=== PATIENT | female | born 1935 | race Caucasian/White ===

== ENCOUNTER 2023-05-06 10:01 | Emergency (ER) | payer MEDICARE, MEDICAID ==
[~2023-05-06] VITALS: Ht 154.9 cm; Wt 47.6 kg
[2023-05-06] VITALS (9 sets, daily range): BP systolic 129–174; BP diastolic 72–103
[2023-05-06 10:38] LABS: BASO% 0.5 % (0-3); EOS% 2.4 % (0-8); HEMATOCRIT 33.5 % (37.0-47.0); HEMOGLOBIN 11.2 g/dl (12.0-16.0); IMMATURE GRANULOCYTES 0.2 % (0.0-5.0); LYMPH% 16.7 % (15-41); MEAN CELL VOLUME 95.2 fL CALC (80.0-100.0); MEAN CORPUSCULAR HGB 31.8 pG CALC (26.0-32.0); MEAN CORPUSCULAR HGB CONC 33.4 g/dL CAL (32.0-36.0); MONO% 9.9 % (2-13); NEUT# 6.71 thou/uL (2.00-7.15); NEUT% 70.3 % (42-76); RED BLOOD COUNT 3.52 mill/uL (4.20-5.60); RED CELL DISTRI WIDTH 12.7 % (11.5-15.5)
[2023-05-06 10:51] LABS: ALKALINE PHOSPHATASE 71 u/l (38-126); ANION GAP 10 (6-22 (CALC)); BUN 9 mg/dL (8-23); BUN/CREATININE RATIO 11 (12-20 (CALC)); CARBON DIOXIDE 26 mmol/l (22-30); CHLORIDE 101 mmol/l (95-108); CREATININE 0.8 mg/dL (0.5-1.0); GFR FOR AFR.AMER. > 60 ML/MIN (>=60 (CALC)); GFR OTHER RACES > 60 ML/MIN (>=60 (CALC)); POTASSIUM 3.9 mmol/l (3.5-5.1); SGOT/AST 30 u/l (9-36); SODIUM 133 mmol/l (137-146); TOTAL PROTEIN 6.4 g/dL (6.3-8.2)
[2023-05-06 10:52] LABS: BILIRUBIN, TOTAL 0.6 mg/dL (0.02-1.3)
[2023-05-06 12:29] LABS: URINE BILIRUBIN - DIPSTICK Negative (NEGATIVE); URINE BLOOD DIPSTICK Negative (NEGATIVE); URINE GLUCOSE - DIPSTICK Negative (NEGATIVE); URINE KETONE Negative (NEGATIVE); URINE LEUK ESTERASE Negative (NEGATIVE); URINE NITRITE - DIPSTICK Negative (Negative); URINE PROTEIN - DIPSTICK Negative (NEG-TRACE); URINE SPECIFIC GRAVITY 1.015; URINE UROBILINOGEN - DIPSTICK 0.2 E.U./dL (0.2)
[2023-05-06 12:30] LABS: URINE COLOR Yellow
== END 2023-05-06 14:00 | disposition home or self-care (01) ==
LOC: ED 10:01
PROVIDERS: Family Medicine
DX: R55 Syncope and collapse (principal); S51.012A Laceration without foreign body of left elbow, initial encounter; S81.012A Laceration without foreign body, left knee, initial encounter; I10 Essential (primary) hypertension; W18.39XA Other fall on same level, initial encounter; Y92.531 Health care provider office as the place of occurrence of the external cause; Z20.822 Contact with and (suspected) exposure to COVID-19

== ENCOUNTER 2024-03-10 11:44 | Inpatient (IN) | payer MEDICARE, MEDICAID ==
[~2024-03-10] VITALS: Ht 154.9 cm; Wt 48.1 kg
--- NOTE | 2024-03-10 11:44 | NUR ---
PATIENT TO ER ROOM 14 VIA EMS.
[2024-03-10] MEDS ORDERED: hydrALAZINE HCL 20 MG/ML VIAL(1 ML) IV ONE (11:50)
[2024-03-10 12:18] LABS: BASO% 0.3 % (0-3); EOS% 2.3 % (0-8); HEMATOCRIT 35.1 % (37.0-47.0); HEMOGLOBIN 12.5 g/dl (12.0-16.0); IMMATURE GRANULOCYTES 0.4 % (0.0-5.0); LYMPH% 18.7 % (15-41); MEAN CORPUSCULAR HGB 31.1 pG CALC (26.0-32.0); MEAN CORPUSCULAR HGB CONC 35.6 g/dL CAL (32.0-36.0); MONO% 8.2 % (2-13); NEUT# 4.8 thou/uL (2.00-7.15); NEUT% 70.1 % (42-76); RED BLOOD COUNT 4.02 mill/uL (4.20-5.60); RED CELL DISTRI WIDTH 11.4 % (11.5-15.5)
[2024-03-10 12:43] LABS: MEAN CELL VOLUME 87.3 fL CALC (80.0-100.0)
--- NOTE | 2024-03-10 13:00 | NUR ---
PATIENT LYING IN BED WITH NO ACUTE DISTRESS NOTED AT THIS TIME. VSS. BED LOCKED, IN LOW POSITION. CALL LIGHT WITHIN REACH.
[2024-03-10 13:02] LABS: ALBUMIN 4.5 g/dL (3.2-5.0); ALKALINE PHOSPHATASE 67 u/l (38-126); BUN 7 mg/dL (8-23); BUN/CREATININE RATIO 9 (12-20 (CALC)); CARBON DIOXIDE 27 mmol/l (22-30); CREATININE 0.7 mg/dL (0.5-1.0); ESTIMATED GFR 83 ML/MIN (>=90 (CALC)); SGOT/AST 31 u/l (9-36); TOTAL PROTEIN 7.3 g/dL (6.3-8.2)
[2024-03-10 13:03] LABS: ANION GAP 14 (6-22 (CALC)); BILIRUBIN, TOTAL 1.2 mg/dL (0.02-1.3); CHLORIDE 75 mmol/l (95-108)
[2024-03-10 13:06] LABS: SODIUM 113 mmol/l (137-146)
[2024-03-10] MEDS ORDERED: SODIUM CHLORIDE 0.9% 1,000 ML IV ONE (13:10)
[2024-03-10] MEDS ORDERED: POTASSIUM CHLORIDE 20 MEQ/TAB PO ONE (13:20)
--- NOTE | 2024-03-10 14:00 | NUR ---
NO ACUTE DISTRESS NOTED. VSS. BED LOCKED, IN LOW POSITION, CALL LIGHT WITHIN REACH.
[2024-03-10 14:57] LABS: CREATININE 0.8 mg/dL (0.5-1.0); POTASSIUM 3.1 mmol/l (3.5-5.1)
--- NOTE | 2024-03-10 15:46 | NUR ---
PATIENT RECEIVING CENTRAL LINE.
[2024-03-10] MEDS ORDERED: SODIUM CHLORIDE 3% 100 ML IV SCH (16:30)
--- NOTE | 2024-03-10 17:15 | NUR ---
PATIENT TAKEN TO ICU ROOM 3.
--- NOTE | 2024-03-10 17:30 | NUR ---
PT ARRIVED TO ICU BY WHEELCHAIR WITH ED NURSE. PT AMBULATED TO BED INDEPENDENTLY. REPOSITIONED IN BED. PT IS A/O. LUNGS CLEAR; ON RA; NO COUGH OR SOB NOTED. HEART SOUNDS S1S2; NSR ON TELEMETRY. BS ACTIVE. LAST BM TODAY. PULSES STRONG UPPER, WEAK LOWER EXTREMETIES. NO EDEMA. SKIN W/D/I. AFEBRILE. PT'S SON AT BEDSIDE. PT EDUCATED ON FALL PRECAUTIONS AND GIVEN CALL LIGHT. PT DECLINED DINNER. VSS.
--- NOTE | 2024-03-10 17:32 | NUR ---
PATIENT TAKEN TO ROOM 280 WITH TELE.
[2024-03-10] MEDS ORDERED: ATORVASTATIN CA40 MG PO (17:52)
[2024-03-10] MEDS ORDERED: FERROUS SULFAT325 MG PO (17:53)
[2024-03-10] MEDS ORDERED: FUROSEMIDE20 MG PO (17:53)
[2024-03-10] MEDS ORDERED: OMEPRAZOLE DR40 MG PO (17:55)
[2024-03-10] MEDS ORDERED: hydrALAZINE HCL 20 MG/ML VIAL(1 ML) IV PRN (18:25)
--- NOTE | 2024-03-10 18:27 | NUR ---
DR. ROACH AT BEDSIDE TO SPEAK WITH PT.
[2024-03-10] MEDS ORDERED: LOSARTAN POTASS50 MG PO (19:12)
[2024-03-10] MEDS ORDERED: LEVOCETIRIZINE D5 MG PO (19:13)
[2024-03-10] MEDS ORDERED: CARVEDILOL25 MG PO (19:14)
[2024-03-10 19:55] LABS: CREATININE 0.7 mg/dL (0.5-1.0)
[2024-03-10 19:56] LABS: POTASSIUM 3.8 mmol/l (3.5-5.1)
--- NOTE | 2024-03-10 20:00 | NUR ---
ASSESSMENT COMPLETE. PT IS A + O TO PPT. PT COMPLAINS OF A HEADACHE. PT IS HOH. TAO @ BEDSIDE. BP 181/88. HR 72. CALL LIGHT IN REACH
[2024-03-10] MEDS ORDERED: SODIUM CHLORIDE 1 GM/TAB TAB PO SCH (20:45)
[2024-03-10] MEDS ORDERED: SODIUM CHLORIDE 0.9% 1,000 ML IV SCH (20:45)
[2024-03-10] MEDS ORDERED: FUROSEMIDE 20 MG/TAB PO SCH (20:50)
[2024-03-10] MEDS ORDERED: LOSARTAN Potassium 50 MG/TAB PO SCH (21:00)
[2024-03-10] MEDS ORDERED: CARVEDILOL 25 MG/TAB PO SCH (21:00)
[2024-03-10] MEDS ORDERED: UREA 15 GM PO SCH (21:00)
--- NOTE | 2024-03-10 22:00 | NUR ---
NEPHROLOGY CONSULTED PER DR WIN REQUEST. [facility], 114. PT COMPLAINS OF SEVERE HEADACHE. AN NIH ASSESSMENT WAS DONE W/ ANOTHER NURSE WITNESS TO RULE OUT, NO DEFICITS NOTED.
[2024-03-10] MEDS ORDERED: ACETAMINOPHEN 325 MG/TAB PO PRN (22:15)
--- NOTE | 2024-03-10 22:30 | NUR ---
RBABEL MURILLO - Q6H FOR SODIUM LAB DRAW INSTEAD OF Q2H
[2024-03-11] VITALS (10 sets, daily range): BP systolic 109–163; BP diastolic 59–87
--- NOTE | 2024-03-11 | NUR ---
PT RESTING COMFORTABLY, NO COMPLAINTS. V/S STABLE CALL LIGHT IN REACH
[2024-03-11 00:43] LABS: CREATININE 0.7 mg/dL (0.5-1.0); POTASSIUM 3.5 mmol/l (3.5-5.1)
--- NOTE | 2024-03-11 04:00 | NUR ---
PT ASSISTED TO BR. NO COMPLAINTS. LINENS CHANGED. BP ELEVATED. CALL LIGHT IN REACH
[2024-03-11 05:58] LABS: BASO% 0.4 % (0-3); EOS% 1.7 % (0-8); HEMATOCRIT 32.7 % (37.0-47.0); HEMOGLOBIN 11.6 g/dl (12.0-16.0); IMMATURE GRANULOCYTES 0.2 % (0.0-5.0); LYMPH% 14.1 % (15-41); MEAN CELL VOLUME 87.9 fL CALC (80.0-100.0); MEAN CORPUSCULAR HGB 31.2 pG CALC (26.0-32.0); MEAN CORPUSCULAR HGB CONC 35.5 g/dL CAL (32.0-36.0); MONO% 10.2 % (2-13); NEUT% 73.4 % (42-76); RED BLOOD COUNT 3.72 mill/uL (4.20-5.60); RED CELL DISTRI WIDTH 11.6 % (11.5-15.5)
[2024-03-11 06:17] LABS: URINE BILIRUBIN - DIPSTICK Negative (NEGATIVE); URINE BLOOD DIPSTICK Trace-lysed (NEGATIVE); URINE CLARITY Clear; URINE GLUCOSE - DIPSTICK Negative (NEGATIVE); URINE KETONE Trace mg/dL (NEGATIVE); URINE LEUK ESTERASE Negative (Negative); URINE NITRITE - DIPSTICK Negative (Negative); URINE PH 7.5 (4.5-8.0); URINE PROTEIN - DIPSTICK Negative (NEG-TRACE); URINE UROBILINOGEN - DIPSTICK 0.2 E.U./dL (0.2)
[2024-03-11 06:22] LABS: URINE COLOR Yellow
[2024-03-11 06:37] LABS: ALBUMIN 3.9 g/dL (3.2-5.0); BILIRUBIN, TOTAL 1.2 mg/dL (0.02-1.3); CREATININE 0.8 mg/dL (0.5-1.0); MAGNESIUM 1.6 mg/dL (1.6-2.3); TOTAL PROTEIN 6.3 g/dL (6.3-8.2)
--- NOTE | 2024-03-11 07:55 | NUR ---
REPORT RECEIVED FROM NIGHT NURSE. PT IS A/O. LYING IN BED. LUNGS CLEAR; PT IS ON RA; NO COUGH OR SOB NOTED. HEART SOUNDS S1S2; PT IS NSR ON TELEMETRY. BS ACTIVE; PT DENIES ANY ABDOMINAL PAIN OR TENDERNESS; DENIES ANY NAUSEA. PULSES STRONG UPPER, WEAK LOWER EXTREMETIES. SKIN W/D/I. AFEBRILE. PT DENIES ANY NEEDS AT THIS TIME. GIVEN BREAKFAST TRAY BUT NOT READY TO SIT UP TO EAT YET. CALL LIGHT IN REACH. VSS.
[2024-03-11] MEDS ORDERED: MAGNESIUM SULFATE HEPTAHYDRATE 50 ML IV SCH (09:00)
[2024-03-11] MEDS ORDERED: SODIUM CHLORIDE 1 GM/TAB TAB PO SCH (09:00)
[2024-03-11] MEDS ORDERED: POTASSIUM CHLORIDE 20 MEQ/TAB PO SCH ×2 (09:00→16:30)
[2024-03-11] MEDS ORDERED: FUROSEMIDE 20 MG/TAB PO SCH (09:00)
--- NOTE | 2024-03-11 09:55 | NUR ---
NO CHANGES TO PT STATUS. PT HAD INCONTINENT VOID. PT ASSISTED TO BEDSIDE COMMODE TO VOID. LINENS CHANGES. OFFERED FOR PT TO GO TO CHAIR BUT PT DECLINED AND WAS ASSISTED BACK TO BED. CALL LIGHT IN REACH. VSS.
[2024-03-11 10:43] LABS: CREATININE 0.7 mg/dL (0.5-1.0)
--- NOTE | 2024-03-11 11:55 | NUR ---
NO CHANGES TO PT STATUS. PT LYING IN BED. LUNCH TRAY AT BEDSIDE. CALL LIGHT IN REACH. VSS.
--- NOTE | 2024-03-11 12:21 | NUR ---
REPORT GIVEN TO NURSE LAU.
--- NOTE | 2024-03-11 12:30 | NUR ---
Report received from off going nurse. Patient sitting in bed watching television.
[2024-03-11 14:53] LABS: CREATININE 0.7 mg/dL (0.5-1.0); POTASSIUM 3.3 mmol/l (3.5-5.1)
--- NOTE | 2024-03-11 16:00 | NUR ---
Patient sitting in bed visiting with family.
[2024-03-11] MEDS ORDERED: SODIUM CHLORIDE 0.9% 1,000 ML IV ONE (17:00)
--- NOTE | 2024-03-11 18:07 | NUR ---
Dr. Mendieta called to notify of patient's temperature at 1600 and 1800. Orders received.
[2024-03-11 18:32] LABS: CREATININE 0.8 mg/dL (0.5-1.0); POTASSIUM 3.3 mmol/l (3.5-5.1)
--- NOTE | 2024-03-11 19:30 | NUR ---
RECEIVED PATIENT IN NURSE HANDOFF. PATIENT IS STABLE AT THIS TIME, STILL RECEIVING NA+ REPLACEMENT WITH CURRENT NA SERUM AT 120. R-FEMORAL TRIPLE LUMEN APPEARS WITHOUT COMPLICATION OR DISLODGEMENT. EDUCATED ON FALL PRECAUTIONS. BED RAILS PADDED FOR SAFETY.
[2024-03-11 22:43] LABS: POTASSIUM 3.7 mmol/l (3.5-5.1)
[2024-03-11 22:48] LABS: CREATININE 0.9 mg/dL (0.5-1.0)
--- NOTE | 2024-03-11 23:30 | NUR ---
PATIENT ASSISTED TO REMOVE DENTURES, PUREWICK PLACED FOR SLEEP. DENIES MOODY, PAIN OR SOB AT THIS TIME, NO SIGNS OF DISTRESS NOTED. VSS. RESTING WELL WITH CALL LIGHT IN REACH
[2024-03-12] VITALS (29 sets, daily range): BP systolic 103–192; BP diastolic 46–117
--- NOTE | 2024-03-12 01:00 | NUR ---
PT ASSISTED WITH RESTROOM, DENIES PAIN OR SOB. REPOSITIONED FOR COMFORT. RESTING CALMLY WITH CALL LIGHT IN REACH
[2024-03-12 02:36] LABS: HEMATOCRIT 32.3 % (37.0-47.0); HEMOGLOBIN 11.6 g/dl (12.0-16.0); MEAN CORPUSCULAR HGB CONC 35.9 g/dL CAL (32.0-36.0); RED BLOOD COUNT 3.63 mill/uL (4.20-5.60); RED CELL DISTRI WIDTH 12.1 % (11.5-15.5)
[2024-03-12 02:38] LABS: ALBUMIN 3.9 g/dL (3.2-5.0); BILIRUBIN, TOTAL 1.1 mg/dL (0.02-1.3); CREATININE 0.9 mg/dL (0.5-1.0); POTASSIUM 3.3 mmol/l (3.5-5.1); TOTAL PROTEIN 6.4 g/dL (6.3-8.2)
--- NOTE | 2024-03-12 04:30 | NUR ---
LABS DRAWN PER MD ORDER. DENIES PAIN OR COMPLAINTS, MEDICATED PER MD ORDER FOR HBP SB P > 190. RECEIVED HYDRALAZINE, REASSESSMENT SHOWED POSITIVE EFFECT.
--- NOTE | 2024-03-12 05:19 | NUR ---
PT REMAINS STABLE WITH NO COMPLAINTS, RESTING QUIETLY WITH CALL LIGHT IN REACH
[2024-03-12 06:17] LABS: CREATININE 0.9 mg/dL (0.5-1.0); POTASSIUM 3.4 mmol/l (3.5-5.1)
--- NOTE | 2024-03-12 07:41 | NUR ---
REPORT RECEIVED FROM NIGHT NURSE. PATIENT AXO X3. S1S2 NOTED, NORMAL SINUS ON TELE. LUNG SOUNDS CLEAR, NO COUGH OR SOB NOTED, ON ROOM AIR. ABDOMEN SOFT, NON DISTENDED, NON TENDER, WITH ACTIVE BOWEL SOUNDS. UPPER PULSES STRONG, LOWER WEAK. SKIN WDI. CALL LIGHT IN REACH.
[2024-03-12] MEDS ORDERED: POTASSIUM CHLORIDE 20 MEQ/TAB PO SCH (08:00)
--- NOTE | 2024-03-12 08:00 | NUR ---
SPOKE WITH FAMILY MEMBER KYLIE TRISTAN AND PROVIDED AN UPDATE.
[2024-03-12] MEDS ORDERED: CHLORTHALIDONE25 MG PO (08:10)
--- NOTE | 2024-03-12 10:00 | NUR ---
PATIENT SITTING UP IN BED RESTING. DENIES NEEDS AT THIS TIME. CALL LIGHT IN REACH.
--- NOTE | 2024-03-12 12:00 | NUR ---
PATIENT LAYING DOWN IN BED RESTING WITH EYES CLOSED. ALL NEEDS MET. CALL LIGHT IN REACH.
--- NOTE | 2024-03-12 14:00 | NUR ---
PATIENT SITTING UP IN BED RESTING. ALL NEEDS MET. CALL LIGHT IN REACH.
--- NOTE | 2024-03-12 16:00 | NUR ---
PATIENT SITTING UP IN BED. FAMILY AT BEDSIDE. ALL NEEDS MET. CALL LIGHT IN REACH.
--- NOTE | 2024-03-12 16:15 | NUR ---
PATIENT AMBULATED UP HALLS WITH MINIMAL ASSIST WITH PHYSICAL THERAPY.
--- NOTE | 2024-03-12 18:00 | NUR ---
PATIENT LAYING DOWN IN BED RESTING WITH EYES CLOSED. ALL NEEDS MET. CALL LIGHT IN REACH.
--- NOTE | 2024-03-12 20:33 | NUR ---
ASSESSMENT COMPLETED. PT IS AWAKE, WATCHING TV, A + O TO PPT. HAS NO COMPLAINTS. SEIZURE PRECAUTIONS IN PLACE. BP ELEVATED, 148/75. CALL LIGHT IN REACH
--- NOTE | 2024-03-12 22:30 | NUR ---
PT AWAKE, WATCHING TV. NO CHANGE IN STATUS. PT HAS NO COMPLAINTS/ V/S STABLE. CALL LIGHT IN REACH
[2024-03-13] VITALS (22 sets, daily range): BP systolic 109–177; BP diastolic 57–99
--- NOTE | 2024-03-13 00:15 | NUR ---
PT RESTING COMFORTABLY, NO CHANGES NOTED. V/S STABLE. CALL LIGHT IN REACH
--- NOTE | 2024-03-13 02:15 | NUR ---
PT ASSSITED TO BSC, NO COMPLAINTS. V/S STABLE. CALL LIGHT IN REACH
--- NOTE | 2024-03-13 04:20 | NUR ---
UPON APPROACHING ROOM, PT WAS SEEN SITTING AT THE EDGE OF THE BED. BLOOD WAS ALL OVER FLOOR AND [place], UPON FURTHER INSPECTION, PT REMOVED RFEM TRIP LUMEN CATHETER. PT ABLE TO ANSWERS QUESTIONS APPROP: PERSON, PLACE, TIME. PT DOES NOTE TO BE SLIGHTLY CONFUSED. STATES WE ARE PLAYING TRICKS ON HER, THIS ISNT THE ROOM SHE WAS ORIGINALLY IN. REORIENTATED PT TO ROOM, REASSURED SHE HAS NOT MOVED ROOMS. NEW IV STARTED IN RAC, 20G. PT IS IN BED, SEIZURE PRECAUTIONS IN PLACE, BED ALARM IS ACTIVATED, CALL LIGHT IN REACH
[2024-03-13 05:09] LABS: HEMATOCRIT 36.4 % (37.0-47.0); HEMOGLOBIN 12.4 g/dl (12.0-16.0); MEAN CELL VOLUME 91.9 fL CALC (80.0-100.0); MEAN CORPUSCULAR HGB 31.3 pG CALC (26.0-32.0); MEAN CORPUSCULAR HGB CONC 34.1 g/dL CAL (32.0-36.0); RED BLOOD COUNT 3.96 mill/uL (4.20-5.60); RED CELL DISTRI WIDTH 12.7 % (11.5-15.5)
[2024-03-13 05:29] LABS: ALBUMIN 4.2 g/dL (3.2-5.0); BILIRUBIN, TOTAL 0.9 mg/dL (0.02-1.3); CREATININE 0.8 mg/dL (0.5-1.0); POTASSIUM 3.6 mmol/l (3.5-5.1); TOTAL PROTEIN 6.7 g/dL (6.3-8.2)
--- NOTE | 2024-03-13 07:53 | NUR ---
REPORT RECEIVED FROM NIGHT NURSE. PATIENT AXO X3. S1S2 NOTED, NORMAL SINUS ON TELE. LUNG SOUNDS CLEAR, NO COUGH OR SOB NOTED. ABDOMEN SOFT, NON DISTENDED, NON TENDER, WITH ACTIVE BOWEL SOUNDS. PULSES STRONG IN ALL EXTREMITIES. SKIN WDI. CALL LIGHT IN REACH.
--- NOTE | 2024-03-13 09:09 | NUR ---
CALL RECEIVED FROM DR. DOS SANTOS. PER PROVIDER, PATIENT MAY BE DISCHARGED HOME WITH SALT TABLETS.
--- NOTE | 2024-03-13 10:00 | NUR ---
PATIENT SITTING UP IN BED TALKING ON THE PHONE. ALL NEEDS MET. CALL LIGHT IN REACH.
--- NOTE | 2024-03-13 12:00 | NUR ---
PATIENT SITTING UP IN BED EATING. FAMILY AT BEDSIDE. ALL NEEDS MET. CALL LIGHT IN REACH.
--- NOTE | 2024-03-13 14:00 | NUR ---
PATIENT SITTING UP WATCHING TV. ALL NEEDS MET. CALL LIGHT IN REACH.
--- NOTE | 2024-03-13 16:00 | NUR ---
PATIENT SITTING UP IN BED. FAMILY AT BEDSIDE. ALL NEEDS MET. CALL LIGHT IN REACH.
[2024-03-13] MEDS ORDERED: amLODIPine BESYLATE 5 MG/TAB PO SCH (17:42)
--- NOTE | 2024-03-13 18:00 | NUR ---
PATIENT SITTING UP IN BED READING. ALL NEEDS MET. CALL LIGHT IN REACH.
--- NOTE | 2024-03-13 18:00 | NUR ---
PATIENT SITTING UP IN BED TALKING WITH DAUGHTER. DENIES NEEDS AT THIS TIME. CALL LIGHT IN REACH.
--- NOTE | 2024-03-13 20:15 | NUR ---
ASESSMENT COMPLETED. PT IS A + O x3. ASSISTED TO BR, LINENS CHANGED. SEIZURE PRECAUTIONS ARE IN PLACE. BP ELEVATED, HR 63. WARM BLANKETS PROVIDED. CALL LIGHT IN REACH
--- NOTE | 2024-03-13 22:18 | NUR ---
PT RESTING COMFORTABLY. NO CHANGES NOTED. V/S STABLE. CALL LIGHT IN REACH
[2024-03-14] VITALS (13 sets, daily range): BP systolic 88–176; BP diastolic 50–90
--- NOTE | 2024-03-14 00:38 | NUR ---
PT RESTING COMFORTABLY, NO CHANGES. V/S STABLE. CALL LIGHT IN REACH
--- NOTE | 2024-03-14 02:30 | NUR ---
PT UP TO BR. PT HAS NO COMPLAINTS. V/S STABLE. BED ALARM ACTIVATED, PT IS A FALL RISK, AND ATTEMPTS TO AMBULATE BY SELF TO BR. CALL LIGHT IN REACH
--- NOTE | 2024-03-14 04:33 | NUR ---
PT ATTEMPTING TO GET OUT OF BED BY SELF, EDUCATED PT ON NEED TO CALL FOR ASSISTANCE. PT SEEMS TO BE INCREASINGLY MORE CONFUSED NIGHT PROGRESSES. PT ALERT TO SELF. PT STATES SHE IS @ NONDENOMINATIONAL. BED ALARM IS ACTIVATED. CALL LIGHT IN REACH
[2024-03-14 05:08] LABS: ALBUMIN 4.4 g/dL (3.2-5.0); BILIRUBIN, TOTAL 0.9 mg/dL (0.02-1.3); CREATININE 0.7 mg/dL (0.5-1.0); MAGNESIUM 1.9 mg/dL (1.6-2.3); TOTAL PROTEIN 7.3 g/dL (6.3-8.2)
[2024-03-14 05:21] LABS: HEMATOCRIT 38.2 % (37.0-47.0); HEMOGLOBIN 12.7 g/dl (12.0-16.0); MEAN CELL VOLUME 94.8 fL CALC (80.0-100.0); MEAN CORPUSCULAR HGB 31.5 pG CALC (26.0-32.0); MEAN CORPUSCULAR HGB CONC 33.2 g/dL CAL (32.0-36.0); RED BLOOD COUNT 4.03 mill/uL (4.20-5.60); RED CELL DISTRI WIDTH 12.6 % (11.5-15.5)
--- NOTE | 2024-03-14 06:29 | NUR ---
PT REORIENTATED TO PLACE. PT IS CONFUSED, ATTEMPTING TO GET OUT OF BED. BED ALARM IS ACTIVATED. V/S STABLE. CALL LIGHT IN REACH
--- NOTE | 2024-03-14 07:20 | NUR ---
PT LAYING IN BED RESTING WITH EYES CLOSED, PT AROUSES EASILY TO VERBAL STIMULI, PT ALERT AND ORIENTED TO PERSON, NORMAL S1 S2 HEART SOUNDS, PT CONNECTED TO DISTRICT MANAGER, ABD DISTENDED AND SOFT WITH ACTIVE BOWEL SOUNDS, RESP EVEN AND UNLABORED, 20G RAC IV WITH FLUIDS INFUSING AT PRESCRIBED RATE, STRONG RADIAL PULSES, WEAK PEDAL PULSES, SAFETY MEASURES REINFORCED, PT REMINDED TO CALL FOR ASSISTANCE, PT VERBALIZED UNDERSTANDING, CALL LUJAN WITHIN REACH
[2024-03-14] MEDS ORDERED: LOSARTAN POTASS50 MG PO (09:14)
--- NOTE | 2024-03-14 09:15 | NUR ---
DR ROACH AT BEDSIDE DISCUSSING PLAN OF CARE
[2024-03-14] MEDS ORDERED: FUROSEMIDE20 MG PO (09:17)
[2024-03-14] MEDS ORDERED: SOD CHLORIDE1 GM PO (09:17)
--- NOTE | 2024-03-14 10:30 | NUR ---
Discharge instructions given. Patient verbalizes understanding of same. Discharged in stable condition via Wheelchair to Home with family. All belongings sent with pt.
== END 2024-03-14 10:30 | DRG 641 ==
LOC: ED 11:44 → ED-I 13:23 → ED 13:40 → ICU 13:41 → ED-I 13:41 → ICU 15:30
PROVIDERS: Family Medicine; Nurse Practitioner Family; ADMIT Internal Medicine; ATTEND Internal Medicine
PROC: 06HY33Z Insertion of Infusion Device into Lower Vein, Percutaneous Approach (ICD-10-PCS; principal; 2024-03-10)
DX: E87.1 Hypo-osmolality and hyponatremia (principal); T50.2X5A Adverse effect of carbonic-anhydrase inhibitors, benzothiadiazides and other diuretics, initial encounter; E87.6 Hypokalemia; I12.9 Hypertensive chronic kidney disease with stage 1 through stage 4 chronic kidney disease, or unspecified chronic kidney disease; N18.2 Chronic kidney disease, stage 2 (mild); E78.5 Hyperlipidemia, unspecified; E87.8 Other disorders of electrolyte and fluid balance, not elsewhere classified; F10.20 Alcohol dependence, uncomplicated; R41.0 Disorientation, unspecified
CPT/HCPCS: J0360; J3475

== ENCOUNTER 2024-03-23 14:04 | Emergency (ER) | payer MEDICARE, MEDICAID ==
[~2024-03-23] VITALS: Ht 154.9 cm; Wt 45.3 kg
[~2024-03-23 14:04] MED LIST: ATORVASTATIN CA40 MG PO; CARVEDILOL25 MG PO; CHLORTHALIDONE25 MG PO; FERROUS SULFAT325 MG PO; FUROSEMIDE20 MG PO; LEVOCETIRIZINE D5 MG PO; LOSARTAN POTASS50 MG PO; OMEPRAZOLE DR40 MG PO; SOD CHLORIDE1 GM PO
[2024-03-23 15:20] LABS: BASO% 0.6 % (0-3); EOS% 5.8 % (0-8); HEMATOCRIT 34.3 % (37.0-47.0); HEMOGLOBIN 11.4 g/dl (12.0-16.0); IMMATURE GRANULOCYTES 0.2 % (0.0-5.0); LYMPH% 20.8 % (15-41); MEAN CELL VOLUME 94.2 fL CALC (80.0-100.0); MEAN CORPUSCULAR HGB 31.3 pG CALC (26.0-32.0); MEAN CORPUSCULAR HGB CONC 33.2 g/dL CAL (32.0-36.0); NEUT# 5.76 thou/uL (2.00-7.15); NEUT% 65.6 % (42-76); RED BLOOD COUNT 3.64 mill/uL (4.20-5.60); RED CELL DISTRI WIDTH 12.5 % (11.5-15.5)
[2024-03-23 15:33] LABS: ALBUMIN 4.4 g/dL (3.2-5.0); ALKALINE PHOSPHATASE 77 u/l (38-126); ANION GAP 14 (6-22 (CALC)); BILIRUBIN, TOTAL 0.8 mg/dL (0.02-1.3); BUN 12 mg/dL (8-23); BUN/CREATININE RATIO 17 (12-20 (CALC)); CARBON DIOXIDE 27 mmol/l (22-30); CHLORIDE 98 mmol/l (95-108); CREATININE 0.7 mg/dL (0.5-1.0); ESTIMATED GFR 83 ML/MIN (>=90 (CALC)); SGOT/AST 36 u/l (9-36); SODIUM 135 mmol/l (137-146); TOTAL PROTEIN 7.2 g/dL (6.3-8.2)
[2024-03-23] MEDS ORDERED: hydrALAZINE HCL 20 MG/ML VIAL(1 ML) IV ONE (15:35)
[2024-03-23 15:38] LABS: POTASSIUM 3.9 mmol/l (3.5-5.1)
[2024-03-23 16:06] LABS: URINE BILIRUBIN - DIPSTICK Negative (NEGATIVE); URINE BLOOD DIPSTICK Negative (NEGATIVE); URINE GLUCOSE - DIPSTICK Negative (NEGATIVE); URINE KETONE Negative (NEGATIVE); URINE LEUK ESTERASE Negative (NEGATIVE); URINE NITRITE - DIPSTICK Negative (Negative); URINE PROTEIN - DIPSTICK Negative (NEG-TRACE); URINE SPECIFIC GRAVITY 1.015; URINE UROBILINOGEN - DIPSTICK 0.2 E.U./dL (0.2)
[2024-03-23 16:07] LABS: URINE COLOR Straw
[2024-03-23] MEDS ORDERED: cloNIDine HCL 0.1 MG/TAB PO ONE (17:15)
[2024-03-23] MEDS ORDERED: CLONIDINE0.1 MG PO (17:39)
[2024-03-23 17:44] VITALS: BP 173/96
== END 2024-03-23 17:54 | disposition home or self-care (01) ==
LOC: ED 14:04
PROVIDERS: Nurse Practitioner
DX: I10 Essential (primary) hypertension (principal); E87.1 Hypo-osmolality and hyponatremia
CPT/HCPCS: J0360